=== PATIENT | female | born 1970 | race Caucasian/White ===

== ENCOUNTER → 2018-01-15 | Outpatient (CLI) | payer BC ==
[2018-01-15 14:37] LABS: ANION GAP 11.9 mmol/L (8-16); BLOOD UREA NITROGEN 13 mg/dL (7-26); BUN/CREATININE RATIO 16 (6-25); CALCIUM 8.9 mg/dL (8.4-10.2); CARBON DIOXIDE 27 mmol/L (22-29); CHLORIDE 102 mmol/L (98-107); EST GLOMERULAR FILTRATION RATE > 60 ML/MIN (60-); GLUCOSE 109 mg/dL (74-118); POTASSIUM 3.9 mmol/L (3.5-5.1); SODIUM 137 mmol/L (136-145)
== END ==
LOC: RAD 13:21
PROVIDERS: ATTEND Family Medicine
DX: M79.89 Other specified soft tissue disorders (principal)
CPT/HCPCS: 36415; 80048; 85379; 93970

== ENCOUNTER → 2018-02-27 | Outpatient (CLI) | payer BC | LOC: MAMMO 09:02 | PROVIDERS: ATTEND Obstetrics & Gynecology Gynecology | DX: Z12.31 Encounter for screening mammogram for malignant neoplasm of breast (principal) | CPT/HCPCS: 77067 ==

== ENCOUNTER → 2018-02-28 | Outpatient (CLI) | payer BC ==
[2018-02-28 09:16] LABS: BASOPHILS # (AUTO) 0.1 (0.0-0.1); BASOPHILS % 0.9 % (0.0-1.0); EOSINOPHILS # (AUTO) 0.2 (0.0-0.4); HEMATOCRIT 42.6 % (34.2-44.1); HEMOGLOBIN 13.7 g/dL (12.0-16.0); LYMPHOCYTES # (AUTO) 2.1 (1.0-3.2); LYMPHOCYTES % 23.4 % (18.0-39.1); MEAN CORPUSCULAR HEMOGLOBIN 29.5 pg (28-32); MEAN CORPUSCULAR HGB CONC 32.2 g/dL (31-35); MEAN CORPUSCULAR VOLUME 91.6 fL (81-99); MONOCYTES # (AUTO) 0.5 (0.2-0.8); MONOCYTES % 5.9 % (4.4-11.3); NEUTROPHILS # (AUTO) 6.1 (2.1-6.9); NEUTROPHILS % 67.2 % (38.7-80.0); PLATELET COUNT 243 x10e3/uL (140-360); RED BLOOD COUNT 4.65 x10e6/uL (3.6-5.1)
[2018-02-28 09:37] LABS: ALANINE AMINOTRANSFERASE 15 IU/L (0-55); ALBUMIN 3.8 g/dL (3.5-5.0); ALBUMIN/GLOBULIN RATIO 1.2 (0.8-2.0); ALKALINE PHOSPHATASE 70 IU/L (40-150); BLOOD UREA NITROGEN 14 mg/dL (7-26); BUN/CREATININE RATIO 16 (6-25); CALCIUM 9.5 mg/dL (8.4-10.2); CARBON DIOXIDE 27 mmol/L (22-29); CHLORIDE 106 mmol/L (98-107); CHOL/HDL RATIO 3.1 (3.0-3.6); CHOLESTEROL 166 MD/DL (0-199); CREATININE, SERUM 0.89 mg/dL (0.57-1.11); EST GLOMERULAR FILTRATION RATE > 60 ML/MIN (60-); GLUCOSE 99 mg/dL (74-118); HDL CHOLESTEROL 53 MG/DL (40-60); LDL CHOLESTEROL 86 MG/DL (60-130); SODIUM 139 mmol/L (136-145); TRIGLYCERIDES 134 MG/DL (0-149)
[2018-02-28 09:56] LABS: THYROID STIMULATING HORMONE 1.713 uIU/mL (0.350-4.940)
== END ==
LOC: LAB 06:44
PROVIDERS: ATTEND Obstetrics & Gynecology Gynecology
DX: Z12.31 Encounter for screening mammogram for malignant neoplasm of breast (principal)
CPT/HCPCS: 36415; 80053; 80061; 82306; 83036; 84443; 85025

== ENCOUNTER 2018-09-11 10:01 | Emergency (ER) | payer BC, OTHER ==
[~2018-09-11] VITALS: Ht 182.9 cm; Wt 97.5 kg
--- OUTSIDE RECORDS SUMMARY | 2018-09-11 10:04 | XMS REPORT ---
Author Author [facility] Address Unknown Phone Unavailable Care Team Providers Care Technical Solution Architect Name Role Phone JACEY MORALEZ Unavailable Unavailable Problems This patient has no known problems. Allergies, Adverse Reactions, Alerts This patient has no known allergies or adverse reactions. Medications This patient has no known medications. Results Test Description Test Time Test Comments Text Results Atomic Results Result Comments MAMMOGRAPHY DIGITAL SCR BILAT 2018-02-27 09:26:00 [place] [id number] Patient Name: JIE SEVERINO MR #: [id number] : 1970 Age/Sex: 48/F Req #: [id number] [facility] Physician: Ordered by: JACEY MORALEZ MD Report #: [id number] Location: MAMMO Room/Bed: Procedure: [id number] MG/MAMMOGRAPHY DIGITAL SCR BILAT Exam Date: 02/27/18 Exam Time: 0907 REPORT STATUS: Signed #[id number] - MGSCRBIL #BILATERAL DIGITAL SCREENING MAMMOGRAM WITH CAD: 02/27/2018 CLINICAL: Routine screening. Comparison is made to exams dated: 03/14/2017 mammogram and 11/21/2015 mammogram - [facility]. Current study contains 4 films. The tissue of both breasts is heterogeneously dense. This may lower the sensitivity of mammography. Current study was also evaluated with a Computer Aided Detection (CAD) system. There are stable benign scattered calcifications in both breasts. No significant masses, calcifications, or other findings are seen in either breast. There has been no significant interval change. IMPRESSION: BENIGN There is no mammographic evidence of malignancy. A 1 year screening mammogram is recommended. The patient will be notified by letter of the results. Ceferino Birmingham Jr., D.O. cw/:03/08/2018 14:37:00 Bit Setter: Magalys LEMA([place])(M), [facility] letter sent: Compared to Prior B9 Mammogram BI-RADS: 2 Benign Dictated By: CEFERINO BIRMINGHAM DO 1437 Transcribed By: DOMONIQUE on 03/08/18 1437 COPY TO: JACEY MONTEMAYOR MD
[2018-09-11] MEDS ORDERED: IBUPROFEN 600 MG TAB PO NR (10:30)
--- NOTE | 2018-09-11 12:47 | Diagnostic Imaging Report ---
Exam: Left knee 3 views History: Fell, concern for fracture Comparison: None. Findings: No acute, displaced fracture or dislocation. Joint space is well-maintained. No joint effusion. Soft tissues are unremarkable. Impression: No acute osseous abnormality. Signed by: Dr. Rolando Escobar M.D. on 09/11/2018 12:43 PM
--- NOTE | 2018-09-11 12:59 | Diagnostic Imaging Report ---
Exam: Right shoulder 2 views History: Fall, concern for fracture Comparison: None. Findings: No acute, displaced fracture or dislocation. The humeral head projects appropriately adjacent to the glenoid. Mild acromioclavicular joint space narrowing and undersurface osteophytosis. Soft tissues unremarkable. Partially visualized right hemithorax is well aerated. Impression: No acute osseous abnormality. Signed by: Dr. Rolando Escobar M.D. on 09/11/2018 12:56 PM
[2018-09-11 13:14] VITALS: BP 133/73
== END 2018-09-11 13:36 | disposition home or self-care (01) ==
LOC: ER 10:01
DX: S46.011A Strain of muscle(s) and tendon(s) of the rotator cuff of right shoulder, initial encounter (principal); S16.1XXA Strain of muscle, fascia and tendon at neck level, initial encounter; S80.02XA Contusion of left knee, initial encounter; M54.5 Low back pain; M25.572 Pain in left ankle and joints of left foot; W01.0XXA Fall on same level from slipping, tripping and stumbling without subsequent striking against object, initial encounter; Y93.01 Activity, walking, marching and hiking; Y99.0 Civilian activity done for income or pay
CPT/HCPCS: 99283

== ENCOUNTER → 2018-10-30 | Outpatient (RCR) | payer BC | LOC: PT 10-14 07:57 | PROVIDERS: ATTEND Orthopaedic Surgery | DX: M22.2X1 Patellofemoral disorders, right knee (principal); M25.861 Other specified joint disorders, right knee; M25.561 Pain in right knee; M25.661 Stiffness of right knee, not elsewhere classified; M25.461 Effusion, right knee; R26.2 Difficulty in walking, not elsewhere classified | CPT/HCPCS: 97110 ×3; 97112 ×2; 97140 ×3; 97161; G0283 ==

== ENCOUNTER 2018-10-31 16:04 | Outpatient (RCR) | payer BC | END 2018-11-27 | LOC: PT 16:04 | PROVIDERS: ATTEND Orthopaedic Surgery | DX: M22.2X1 Patellofemoral disorders, right knee (principal); M25.861 Other specified joint disorders, right knee; M25.561 Pain in right knee; M25.661 Stiffness of right knee, not elsewhere classified; M25.461 Effusion, right knee; M62.81 Muscle weakness (generalized); R26.2 Difficulty in walking, not elsewhere classified ==

== ENCOUNTER → 2018-11-11 | Outpatient (CLI) | payer BC ==
--- NOTE | 2018-11-11 18:34 | Diagnostic Imaging Report ---
Examination: CT Face without Contrast History:Sinus drainage. Comparison studies: None Technique: Axial images were obtained through the maxillofacial region. Coronal and sagittal reconstructions obtained from the axial data. Dose modulation, iterative reconstruction, and/or weight based adjustment of the mA/kV was utilized to reduce the radiation dose to as low as reasonably achievable. Intravenous contrast: None Findings: Soft tissues: No abnormalities. Bones: No fractures or bony abnormalities. Orbits: Globes: Intact Extra or intraconal abnormalities: None. Paranasal sinuses: Near complete opacification of the right ethmoid air cells. Complete opacification of the left ethmoid air cells. Retention cyst along the aerated lateral recess of the left sphenoid sinus. Mild inflammatory mucosal thickening of the inferior left frontal, left sphenoid and alveolar recess of the left maxillary sinuses. Opacification and obstruction of the right frontonasal and left sphenoethmoidal recesses and bilateral ostiomeatal units. Nasal cavity: Partially obstructed due to the presence of retained secretion and synechiae. Leftward curvature of the nasal septum (7 mm). Aerated vertical strut of the bilateral middle turbinates. IMPRESSION: 1. Left ostiomeatal unit pattern of sinonasal obstruction. 2. Left sphenoethmoidal recess pattern. 3. Partial opacification of the right anterior ethmoid air cells. 4. Multifactorial partial opacification of the bilateral nasal cavities, as above Signed by: Dr. Alisa Montano M.D. on 11/11/2018 6:31 PM
== END ==
LOC: CT 15:22
PROVIDERS: ATTEND Otolaryngology
DX: J31.0 Chronic rhinitis (principal)
CPT/HCPCS: 70486; 81025

== ENCOUNTER → 2019-09-25 | Outpatient (CLI) | payer BC ==
--- NOTE | 2019-10-12 14:33 | Diagnostic Imaging Report ---
#[id number] - MGSCRBIL #BILATERAL DIGITAL SCREENING MAMMOGRAM WITH CAD: 09/25/2019 CLINICAL: Routine screening. Comparison is made to exams dated: 02/27/2018 mammogram, 03/14/2017 mammogram, 11/21/2015 mammogram, 08/23/2014 mammogram and 04/13/2013 mammogram - [facility]. The tissue of both breasts is heterogeneously dense. This may lower the sensitivity of mammography. Current study was also evaluated with a Computer Aided Detection (CAD) system. There are benign lymph nodes in both breasts. There also are benign scattered calcifications in both breasts. No significant masses, calcifications, or other findings are seen in either breast. There has been no significant interval change. IMPRESSION: BENIGN There is no mammographic evidence of malignancy. A 1 year screening mammogram is recommended. The patient will be notified by letter of the results. CASTRO tejada/kortney:10/12/2019 10:40:40 Animal Ride Manager: Magalys LEMA([place])([place]), [facility] letter sent: Compared to Prior B9 Mammogram BI-RADS: 2 Benign
== END ==
LOC: MAMMO 13:33
PROVIDERS: ATTEND Family Medicine
DX: Z12.31 Encounter for screening mammogram for malignant neoplasm of breast (principal)
CPT/HCPCS: 77067

== ENCOUNTER → 2020-10-13 | Outpatient (CLI) | payer OTHER | LOC: RAD 13:22 | PROVIDERS: ATTEND Internal Medicine | DX: S80.01XA Contusion of right knee, initial encounter (principal); M25.461 Effusion, right knee; W19.XXXA Unspecified fall, initial encounter ==

== ENCOUNTER → 2022-04-11 | Outpatient (CLI) | payer BC | LOC: DX 11:46 | PROVIDERS: ATTEND Otolaryngology | DX: R13.10 Dysphagia, unspecified (principal) | CPT/HCPCS: 74230 ==

== ENCOUNTER → 2022-07-19 | Outpatient (CLI) | payer BC | LOC: MAMMO 11:14 | PROVIDERS: ATTEND Obstetrics & Gynecology | DX: Z12.31 Encounter for screening mammogram for malignant neoplasm of breast (principal) | CPT/HCPCS: 77067 ==

== ENCOUNTER → 2022-10-30 | Outpatient (CLI) | payer BC | LOC: US 14:40 | PROVIDERS: ATTEND Nurse Practitioner Family | DX: J02.9 Acute pharyngitis, unspecified (principal); Z86.39 Personal history of other endocrine, nutritional and metabolic disease | CPT/HCPCS: 76536 ==

== ENCOUNTER → 2024-07-28 | Outpatient (REF) | payer BC | LOC: MAMMO 12:37 | PROVIDERS: ATTEND Obstetrics & Gynecology Gynecology | DX: Z12.31 Encounter for screening mammogram for malignant neoplasm of breast (principal) | CPT/HCPCS: 77067 ==